=== PATIENT | male | born 1940 | race Caucasian/White ===

== ENCOUNTER 2018-03-06 19:29 | Emergency (ER) | payer MEDICARE, OTHER ==
[2018-03-06] MEDS ORDERED: Acetaminophen/oxyCODONE 325-5 MG Tab PO ONE (20:01)
--- NOTE | 2018-03-06 20:08 | EDM.PDOC ---
ED HPI GENERAL MEDICAL PROBLEM - General Chief Complaint: Cardiovascular Problem Stated Complaint: GENERAL Time Seen by Provider: 03/06/18 19:30 Source of Information: Reports: Patient, Family History Limitations: Reports: No Limitations - History of Present Illness INITIAL COMMENTS - FREE TEXT/NARRATIVE: Al arrives at [facility] ED with a 5 hour hx of progressive R lower leg pain, burning in character, deep, and migrating to the R groin. There is noticeable weakness of the lower R leg, and coolness to touch. He has a remote hx of PVD, status post revascularization in [place] years ago, and studied in [place] at [facility] about 3 years ago. He takes ASA for a "blood thinner". He also took a MDI in the car before arrival. - Related Data Allergies Allergy/AdvReac Type Severity Reaction Status Date / Time Sulfa (Sulfonamide Allergy Cannot Verified 03/06/18 19:56 Antibiotics) Remember Home Meds: Home Meds Cholecalciferol (Vitamin D3) [Vitamin D3] 2,000 units PO DAILY 03/19/15 [History ] Albuterol Sulfate [Proair Hfa] 2 puff IH QID PRN 09/23/16 [History] Albuterol/Ipratropium [DuoNeb 3.0-0.5 MG/3 ML] 3 ml NEB Q4H PRN 09/23/16 [ History] Furosemide [Lasix] 20 mg PO DAILY 09/23/16 [History] Aspirin [Ecotrin] 325 mg PO DAILY 03/06/18 [History] Past Medical History HEENT History: Reports: Cataract, Impaired Vision, Other (See Below) 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 Respiratory History: Reports: COPD, Pneumonia, Recurrent, SOB Gastrointestinal History: Reports: GERD, GI Bleed, Hiatal Hernia Genitourinary History: Reports: Other (See Below) Other Genitourinary History: kidney disease. Musculoskeletal History: Reports: Arthritis, Other (See Below) Other Musculoskeletal History: GENERALIZED ARTHRITIS VOICED BY PT. Neurological History: Reports: TIA, Other (See Below) Other Neuro History: recent carotid angiogram, 1 week ago PT VOICED FINE TREMORS OF LEFT HAND AT TIMES. 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 HAD RADIATION TREATMENTS FOR THIS. - Infectious Disease History Infectious Disease History: Reports: Chicken Pox, Measles, Mumps - Past Surgical History HEENT Surgical History: Reports: Cataract Surgery, Oral Surgery Cardiovascular Surgical History: Reports: AAA Repair Social & Family History - Tobacco Use Smoking Status *Q: Current Some Day Smoker Years of Tobacco use: 56 Packs/Tins Daily: 0 Used Tobacco, but Quit: Yes Month/Year Tobacco Last Used: 2012 Second Hand Smoke Exposure: No - Caffeine Use Caffeine Use: Reports: Coffee Caffeine Use Comment: 2 CUPS PER DAY - Alcohol Use Days Per Week of Alcohol Use: 0 - Recreational Drug Use Recreational Drug Use: No ED ROS GENERAL - Review of Systems Review Of Systems: See Below Constitutional: Reports: No Symptoms HEENT: Reports: No Symptoms Respiratory: Reports: Shortness of Breath, Cough Cardiovascular: Reports: Claudication, Dyspnea on Exertion Endocrine: Reports: No Symptoms GI/Abdominal: Reports: No Symptoms : Reports: No Symptoms Musculoskeletal: Reports: Leg Pain (R lower leg), Foot Pain (R foot) Skin: Reports: Pallor (R lower leg) Neurological: Reports: Tingling, Difficulty Walking (R lower leg), Weakness Psychiatric: Reports: Anxiety Hematologic/Lymphatic: Reports: No Symptoms Immunologic: Reports: No Symptoms ED EXAM, GENERAL - Physical Exam Exam: See Below Exam Limited By: No Limitations General Appearance: Alert, WD/WN, Anxious, Mild Distress Head: Normocephalic Neck: Normal Inspection, Supple Respiratory/Chest: Decreased Breath Sounds, Crackles, Prolonged Expiration Cardiovascular: Tachycardia Peripheral Pulses: 0: Popliteal (R), Posterior Tibial (R), Dorsalis Pedis (R), 1 +: Femoral (R), 3+: Popliteal (L), Posterior Tibial (L), Dorsalis Pedis (L), 4+ : Femoral (L) GI/Abdominal: Normal Bowel Sounds, Soft, Non-Tender, No Organomegaly, No Distention, No Mass Back Exam: Normal Inspection Extremities: Leg Pain (right), Pallor (R lower leg) Neurological: Alert, Oriented, CN II-XII Intact, Memory Loss Remote Events Psychiatric: Anxious Skin Exam: Cool (R lower leg), Pallor Lymphatic: No Adenopathy Course - Vital Signs Text/Narrative:: I discussed case with Dr Peres, vascular surgeon at [facility], who suggested transfer to ED, vascular imaging and IR. This was arranged on patients behalf. A Percocet 5/325 tab was administered before transfer by POV. - Orders/Labs/Meds Meds: Medications Discontinued Medications Generic Name Dose Route Start Last Admin Trade Name Freq PRN Reason Stop Dose Admin Oxycodone/Acetaminophen 1 tab 03/06/18 20:01 Percocet 325-5 Mg PO 03/06/18 20:02 ONETIME ONE Departure - Departure Time of Disposition: 20:13 Disposition: DC/Tfer to Other 70 Reason for Transfer *Q: Primary PCI Indicated Condition: Poor Clinical Impression: ASVD (arteriosclerotic vascular disease) Referrals: PCP,Not In Area [Primary Care Provider] - Forms: ED Department Discharge - Problem List & Annotations (1) ASVD (arteriosclerotic vascular disease) SNOMED Code(s): 20642290 Code(s): I70.90 - UNSPECIFIED ATHEROSCLEROSIS Status: Acute Current Visit : Yes Annotation/Comment:: Suspected occlusion involving the R lower leg, in need of imaging and IR, arrangements made to transfer by POV to [facility] ED. - Problem List Review Problem List Initiated/Reviewed/Updated: Yes - Assessment/Plan Plan: Follow up with PCP.
[2018-03-07 04:29] VITALS: BP 175/84
== END 2018-03-06 20:22 ==
LOC: FB.ED 19:29
DX: I70.90 Unspecified atherosclerosis (principal); F17.210 Nicotine dependence, cigarettes, uncomplicated; I10 Essential (primary) hypertension; Z88.2 Allergy status to sulfonamides; Z79.82 Long term (current) use of aspirin; Z79.899 Other long term (current) drug therapy
CPT/HCPCS: 99283; A9270